=== PATIENT | male | born 1980 | race African-American/Black ===

== ENCOUNTER 2020-12-23 19:52 | Emergency (ER) | payer MEDICAID ==
[~2020-12-23] VITALS: Ht 188 cm; Wt 91.0 kg
[2020-12-23] MEDS ORDERED: IBUPROFEN 400MG TABLET PO ONE (20:30)
[2020-12-23] MEDS ORDERED: ACETAMINOPHEN 325MG TABLET PO ONE (20:30)
[2020-12-23 21:29] VITALS: BP 111/67
== END 2020-12-23 21:30 | disposition home or self-care (01) ==
LOC: ER 20:07
DX: S86.012A Strain of left Achilles tendon, initial encounter (principal); Z98.890 Other specified postprocedural states; X58.XXXA Exposure to other specified factors, initial encounter; Y93.02 Activity, running; Y92.89 Other specified places as the place of occurrence of the external cause; Y99.8 Other external cause status
CPT/HCPCS: 29515; 99283; Z7610